=== PATIENT | female | born 1975 | race Caucasian/White ===

== ENCOUNTER 2020-11-04 16:34 | Emergency (ER) | payer MEDICAID ==
[~2020-11-04] VITALS: Ht 172.7 cm; Wt 95.3 kg
[2020-11-04] MEDS ORDERED: FLEXERIL PO (16:54)
--- NOTE | 2020-11-04 18:34 | NUR ---
pt given d/c instructions, pt verbalized understanding.
== END 2020-11-04 18:36 | disposition home or self-care (01) ==
LOC: ER 16:45
DX: M54.2 Cervicalgia (principal); F41.9 Anxiety disorder, unspecified; R03.0 Elevated blood-pressure reading, without diagnosis of hypertension; R20.0 Anesthesia of skin
CPT/HCPCS: 70450; 72125; A4663